=== PATIENT | female | born 1965 | race Caucasian/White ===

== ENCOUNTER 2018-10-21 22:31 | Emergency (ER) | payer SELFPAY ==
[~2018-10-21] VITALS: Ht 147.3 cm; Wt 60.9 kg
[2018-10-21 22:38] VITALS: BP 150/90
--- NOTE | 2018-10-21 22:38 | NUR ---
TO BED # 12 AMBULATORY, REPORT GIVEN TO MATTHEW CHAPIN
--- NOTE | 2018-10-21 23:30 | NUR ---
Dr. Gonzalez evaluating patient at bedside.
[2018-10-21] MEDS ORDERED: LORazepam 1 MG TAB PO ONE (23:35)
[2018-10-22] VITALS: BP 144/86
--- NOTE | 2018-10-22 00:01 | NUR ---
Nabeel mena in [facility] - 10/22/18 at [address] Gonzalez evaluating patient at bedside.
== END 2018-10-22 | disposition home or self-care (01) ==
LOC: MED 22:31
DX: F41.9 Anxiety disorder, unspecified (principal); G47.00 Insomnia, unspecified
CPT/HCPCS: 99283